=== PATIENT | female | born 1955 | race Native Hawaiian/Other Pacific Islander ===

== ENCOUNTER 2017-06-09 10:27 | Emergency (ER) | payer BC ==
[~2017-06-09] VITALS: Ht 157.5 cm; Wt 99.8 kg
[~2017-06-09 10:27] MED LIST: CIPRODEX1 ML OT; HYDR25TA60 PO; MONT10TA PO; Z-PAK PO
[2017-06-09 11:30] VITALS: BP 146/73; TEMP 98.3
== END 2017-06-09 13:06 | disposition home or self-care (01) ==
LOC: ED 10:27
PROC: 2W3CX1Z Immobilization of Right Lower Arm using Splint (ICD-10-PCS; principal; 2017-06-09)
DX: S52.591A Other fractures of lower end of right radius, initial encounter for closed fracture (principal); S52.614A Nondisplaced fracture of right ulna styloid process, initial encounter for closed fracture; W19.XXXA Unspecified fall, initial encounter; Y92.098 Other place in other non-institutional residence as the place of occurrence of the external cause
CPT/HCPCS: 96372; 99283; J1885; L3908

== ENCOUNTER 2017-06-13 10:35 | Outpatient (CLI) | payer BC | END 2017-06-13 19:57 | disposition home or self-care (01) | LOC: RAD 10:35 | DX: R05 Cough (principal); R06.2 Wheezing ==

== ENCOUNTER → 2017-10-28 06:53 | Outpatient (CLI) | payer BC | END | disposition home or self-care (01) | LOC: AMB 06:53 | DX: Z04.1 Encounter for examination and observation following transport accident (principal) ==

== ENCOUNTER 2017-10-29 07:43 | Emergency (ER) | payer OTHER, BC | END 2017-10-29 11:00 | disposition home or self-care (01) | LOC: ED 07:43 | DX: R07.89 Other chest pain (principal); V43.52XA Car driver injured in collision with other type car in traffic accident, initial encounter | CPT/HCPCS: 99283 ==

== ENCOUNTER 2018-01-01 10:27 | Outpatient (CLI) | payer BC | END 2018-01-01 18:45 | disposition home or self-care (01) | LOC: RAD 10:27 | DX: M25.561 Pain in right knee (principal) ==

== ENCOUNTER 2018-09-16 08:26 | Emergency (ER) | payer OTHER ==
[~2018-09-16] VITALS: Ht 157.5 cm; Wt 103.4 kg
[2018-09-16 08:36] VITALS: TEMP 97.5
[2018-09-16 09:44] VITALS: BP 148/60
== END 2018-09-16 09:43 | disposition home or self-care (01) ==
LOC: ED 08:26
DX: S20.211A Contusion of right front wall of thorax, initial encounter (principal); W19.XXXA Unspecified fall, initial encounter
CPT/HCPCS: 99282

== ENCOUNTER 2020-08-11 14:27 | Outpatient (CLI) | payer OTHER | END 2020-08-11 20:14 | disposition home or self-care (01) | LOC: LAB 14:27 | DX: M10.072 Idiopathic gout, left ankle and foot (principal) | CPT/HCPCS: 36415; 84550; 85651 ==

== ENCOUNTER 2020-10-04 15:13 | Outpatient (CLI) | payer OTHER | END 2020-10-04 19:16 | disposition home or self-care (01) | LOC: RAD 15:13 | PROVIDERS: ATTEND Nurse Practitioner Family | DX: M54.9 Dorsalgia, unspecified (principal); S39.012A Strain of muscle, fascia and tendon of lower back, initial encounter ==

== ENCOUNTER 2021-04-26 08:46 | Outpatient (CLI) | payer OTHER ==
[2021-04-26 09:13] LABS: PLATELET COUNT 208 K/uL (152-353)
[2021-04-26 09:20] LABS: POTASSIUM 4.5 mmol/L (3.6-5.2)
== END 2021-04-26 22:18 | disposition home or self-care (01) ==
LOC: LABW 08:46
PROVIDERS: ATTEND Internal Medicine Nephrology
DX: E83.52 Hypercalcemia (principal); E87.5 Hyperkalemia; I48.91 Unspecified atrial fibrillation; N18.31 Chronic kidney disease, stage 3a; R74.8 Abnormal levels of other serum enzymes; Z90.5 Acquired absence of kidney
CPT/HCPCS: 36415; 80053; 82570; 83970; 84100; 84155; 85027

== ENCOUNTER 2021-10-27 07:52 | Outpatient (CLI) | payer OTHER ==
[2021-10-27 08:06] LABS: PLATELET COUNT 200 K/uL (152-353)
[2021-10-27 08:17] LABS: POTASSIUM 3.9 mmol/L (3.6-5.2)
== END 2021-10-27 19:24 | disposition home or self-care (01) ==
LOC: LABW 07:52
PROVIDERS: ATTEND Internal Medicine Nephrology
DX: E83.52 Hypercalcemia (principal); E87.5 Hyperkalemia; I48.91 Unspecified atrial fibrillation; N18.31 Chronic kidney disease, stage 3a; R74.8 Abnormal levels of other serum enzymes; R79.89 Other specified abnormal findings of blood chemistry; Z90.5 Acquired absence of kidney; Z79.01 Long term (current) use of anticoagulants
CPT/HCPCS: 36415; 80053; 82306; 83970; 84100; 85027

== ENCOUNTER 2022-04-30 08:20 | Outpatient (CLI) | payer OTHER ==
[2022-04-30 08:47] LABS: PLATELET COUNT 210 K/uL (152-353)
[2022-04-30 08:55] LABS: POTASSIUM 4.4 mmol/L (3.6-5.2)
== END 2022-04-30 18:44 | disposition home or self-care (01) ==
LOC: LABW 08:20
PROVIDERS: ATTEND Internal Medicine Nephrology
DX: E83.52 Hypercalcemia (principal); E87.5 Hyperkalemia; I48.91 Unspecified atrial fibrillation; N18.31 Chronic kidney disease, stage 3a; N25.81 Secondary hyperparathyroidism of renal origin; R74.8 Abnormal levels of other serum enzymes; R79.89 Other specified abnormal findings of blood chemistry; Z90.5 Acquired absence of kidney; Z79.01 Long term (current) use of anticoagulants
CPT/HCPCS: 36415; 80053; 82570; 83970; 84100; 84156; 85027

== ENCOUNTER 2022-06-13 07:58 | Outpatient (CLI) | payer OTHER ==
[2022-06-13 08:21] LABS: PLATELET COUNT 205 K/uL (152-353)
[2022-06-13 08:45] LABS: POTASSIUM 4.4 mmol/L (3.6-5.2)
== END 2022-06-13 18:47 | disposition home or self-care (01) ==
LOC: LABW 07:58
PROVIDERS: ATTEND Nurse Practitioner Family
DX: E78.49 Other hyperlipidemia (principal); E66.01 Morbid (severe) obesity due to excess calories; M19.90 Unspecified osteoarthritis, unspecified site; I48.91 Unspecified atrial fibrillation; N18.30 Chronic kidney disease, stage 3 unspecified; M10.9 Gout, unspecified; Z90.5 Acquired absence of kidney; E55.9 Vitamin D deficiency, unspecified; Z79.899 Other long term (current) drug therapy; I12.9 Hypertensive chronic kidney disease with stage 1 through stage 4 chronic kidney disease, or unspecified chronic kidney disease
CPT/HCPCS: 36415; 80053; 80061; 82043; 82306; 82570; 83036; 84439; 84443; 85027

== ENCOUNTER 2022-11-08 08:11 | Outpatient (CLI) | payer OTHER ==
[2022-11-08 08:38] LABS: POTASSIUM 4.4 mmol/L (3.6-5.2)
[2022-11-08 08:47] LABS: PLATELET COUNT 213 K/uL (152-353)
== END 2022-11-08 18:49 | disposition home or self-care (01) ==
LOC: LABW 08:11
PROVIDERS: ATTEND Internal Medicine Nephrology
DX: E83.52 Hypercalcemia (principal); E87.5 Hyperkalemia; I48.91 Unspecified atrial fibrillation; N18.31 Chronic kidney disease, stage 3a; N25.81 Secondary hyperparathyroidism of renal origin; R74.8 Abnormal levels of other serum enzymes; R79.89 Other specified abnormal findings of blood chemistry; Z90.5 Acquired absence of kidney; Z79.01 Long term (current) use of anticoagulants
CPT/HCPCS: 36415; 80069; 81002; 82306; 82570; 83970; 84156; 85027

== ENCOUNTER 2022-11-21 11:15 | Emergency (ER) | payer OTHER ==
[~2022-11-21] VITALS: Ht 157.5 cm; Wt 103.4 kg
[2022-11-21 11:21] VITALS: BP 156/65; TEMP 97.6
[2022-11-21] MEDS ORDERED: ALBUTEROL108 MCG/AC INH (11:56)
[2022-11-21] MEDS ORDERED: PREDNISONE20 MG PO (11:56)
[2022-11-21] MEDS ORDERED: DOXYCYCLINE100 MG PO (11:56)
== END 2022-11-21 12:44 | disposition home or self-care (01) ==
LOC: ED 11:15
DX: J20.9 Acute bronchitis, unspecified (principal); Z20.822 Contact with and (suspected) exposure to COVID-19
CPT/HCPCS: 87502; 87635; 94664; 99283; U0003